=== PATIENT | female | born 1945 | race Caucasian/White ===

== ENCOUNTER 2018-05-06 03:57 | Observation (INO) | payer OTHER ==
[~2018-05-06] VITALS: Ht 165.1 cm; Wt 81.6 kg
[~2018-05-06 03:57] MED LIST: ASPIRIN81 M4 PO; CALCIUM CITRAT200 MG; CALCIUM500 M1; FLAX OIL1000 M1 PO; HYDROCHLOROTHIA25 M1 PO; LEVOTHYROXINE150 MCG PO; LOSARTAN POTASS50 M1 PO; MULTIVITAMINS1 EAC9 PO; PEPCID20 M1 PO; VITAMIN D1000 UNIT PO
[2018-05-06] MEDS ORDERED: CITRACAL + D M1 EACH PO (09:48)
--- NOTE | 2018-05-06 09:49 | Admission Core Measures ---
Acute Coronary Syndrome (CM) ACS Core Measures Acute Coronary Syndrome Diagnosis No Congestive Heart Failure (NEW) CHF Core Measures Congestive Heart Failure Diagnosis No Cerebrovascular Accident CVA Core Measures CVA/TIA Diagnosis No Venous Thromboembolism VTE Core Morro (View Protocol) VTE Risk Factors Surgery No Mechanical VTE Prophylaxis d/t N/A MechProphylax Ordered No VTE Pharm Prophylaxis d/t NA PharmProphylax ordered Problem List As ranked by this Provider includes Assessment & Plan 1. Primary osteoarthritis of left knee HOME MEDS Home Med List Aspirin (Aspirin*) 81 MG TAB.CHEW 1 TAB PO DAILY CARDIAC (Reported) Cholecalciferol (Vitamin D3) (Vitamin D) 1,000 UNIT TABLET 1 TAB PO DAILY SUPPLEMENT (Reported) Famotidine (Pepcid) 20 MG TABLET 1 TAB PO BID GERD (Reported) Hydrochlorothiazide 25 MG TABLET 1 TAB PO DAILY HTN (Reported) Levothyroxine Sodium 150 MCG TABLET 1 TAB PO DAILY REPLACEMENT (Reported) Losartan Potassium 50 MG TABLET 1 TAB PO DAILY HTN (Reported) Multiple Vitamin (Multivitamins) 1 EACH TABLET 1 TAB PO DAILY SUPPLEMENT ( Reported)
--- NOTE | 2018-05-06 09:50 | Patient Discharge Instructions ---
Discharge Instructions General Discharge Information You were seen/treated for: left knee primary osteoarthritis You had these procedures: left total knee replacement Watch for these problems: Increasing pain despite the use of pain medication Increasing redness, warmth or swelling Drainage of any type from incision Inability to bear weight on operative leg Persistent nausea and vomiting Fever greater than 101.5 degrees Other wound care: Please keep wound clean and dry. No ointments or lotions of any type on or near incision. Your dressing will be changed by your nurse on the second day after your surgery. Daily dry dressing changes are recommended each day thereafter. Do not soak your wound- no tub baths/swimming. You may shower 48hr after surgery. Diet Continue normal diet: Yes Activity Activity Limited to: Weight bear as tolerated Additional ACTIVITY Info: use assistive devices as needed Acute Coronary Syndrome Inclusion Criteria At DC or during hospital stay patient has or had the following: ACS DIAGNOSIS No Discharge Core Measures Meds if any: Prescribed or Continued at Discharge Meds if any: NOT Prescribed or Continued at Discharge Congestive Heart Failure Inclusion Criteria At DC or during hospital stay patient has or had the following: CHF DIAGNOSIS No Discharge Core Measures Meds if any: Prescribed or Continued at Discharge Meds if any: NOT Prescribed or Continued at Discharge Cerebrovascular accident Inclusion Criteria At DC or during hospital stay patient has or had the following: CVA/TIA Diagnosis No Discharge Core Measures Meds if any: Prescribed or Continued at Discharge Meds if any: NOT Prescribed or Continued at Discharge Venous thromboembolism Inclusion Criteria VTE Diagnosis No VTE Type NONE VTE Confirmed by (Test) NONE Discharge Core Measures - Per Current guidelines, there needs to be overlap - treatment for the first 5 days of Warfarin therapy. - If discharged on Warfarin prior to 5 days of - overlap therapy, the patient will need to be - assessed for post discharge needs including - *Post discharge parental anticoagulation - *Warfarin and/or parental anticoagulation education - *Follow up date to check INR post discharge At least 5 days overlap therapy as Inpatient No Meds if any: Prescribed or Continued at Discharge Note: Overlap Therapy is Warfarin and Anticoagulant Meds if any: NOT Prescribed or Continued at Discharge
[2018-05-06] MEDS ORDERED: VEGETARIAN GLU750 MG PO (09:51)
--- NOTE | 2018-05-06 11:02 | Surg Short-stay <48hrs Dis Sum ---
Visit Information Visit Dates Admission Date: 05/06/18 Discharge Date: 05/07/18 Surgical Short Stay DC Summary Admission Diagnosis: Primary osteoarthritis left knee Final Diagnosis: same, sp left total knee replacement Procedure(s): left total knee replacement Summary/Significant Findings: Patient underwent elective total joint replacement. Procedure was tolerated well and patient was transferred to a general surgical floor for recovery. Diet was advanced and tolerated. Physical therapy performed evaluation and treatment. At time of hospital discharge, vital signs were stable, neurovascular status was intact, and pain was controlled with the use of oral pain medications. Condition at Discharge: stable Discharge Disposition: home health services Discharge instructions provided to patient/family: Yes Post discharge follow-up plan: Follow up with Dr. Virk in 6 weeks from date of surgery. Please call office to schedule/confirm this appointment.
[2018-05-06] MEDS ORDERED: MIRALAX17 G1 PO (11:21)
[2018-05-06] MEDS ORDERED: ELIQUIS2.5 M1 PO (11:21)
[2018-05-06] MEDS ORDERED: COLACE100 M1 PO (11:21)
[2018-05-06] MEDS ORDERED: DILAUDID2 M1 PO (11:21)
--- NOTE | 2018-05-06 14:43 | Operative Report ---
Operative/Inv Procedure Report Surgery Date: 05/06/18 Name of Procedure: 1. Left total knee replacement 2. Right knee cortisone injection Pre-Operative Diagnosis: Bilateral primary knee DJD Post-Operative Diagnosis: Same Estimated Blood Loss: 50ml to 100ml Surgeon/Unit Technician: Sully REY,Dean King Anesthesia: block Operative/Procedure Note Note: Description of Procedure: The patient was taken to the operating room and positively identified. After induction of spinal anesthesia and administration of appropriate pre-operative antibiotics, the patient was positioned supine on the operating room table and all bony prominences were well padded. The right knee was prepped sterilely and injected with a mixture of 2 mL of Depo -Medrol and 6 mL of half percent Marcaine. A Band-Aid was placed over the injection site. Attention was then turned to the left lower extremity. A well-padded pneumatic tourniquet was placed on the left upper thigh. After performing a surgical timeout, the left lower extremity was prepped and draped in the usual sterile fashion. After exsanguination with Esmarch the tourniquet was inflated to 250mm of mercury. A standard medial parapatellar approach was made to the knee. This was carried down through skin and subcutaneous tissue to the level of the fascia. Meticulous hemostasis was maintained with Bovie electrocautery. The extensor mechanism and patellar retinaculum were opened sharply and the patella was everted. The infrapatellar fat was resected in order to improve exposure. Osteophytes were trimmed from the patella and femoral condyles and the patella was re-everted and tucked laterally. A medial release was performed and the cruciate ligaments were resected. The tibia was then subluxed anteriorly. Utilizing the appropriate extra-medullary guide, the proximal tibia was trimmed perpendicular to the long axis of the tibial shaft. Attention was then turned to the femur. After opening the medullary canal, the distal femoral cut was made in 6 degrees of valgus utilizing the appropriate intra-medullary guide. The extension gap was checked and found to be appropriate. The femur was then sized and the remainder of the femoral cuts were made with a size 3 4-in-1 femoral cutting guide. The flexion gap was checked and found to be symmetric and appropriate. The knee was then trialed with a size 3 femoral component, a size 3 tibial component and a size 11 mm polyethylene insert. The patella was trimmed to accept an A 32 patella. This yielded excellent range of motion, stability and patellar tracking. All trial components were removed and the knee was copiously irrigated with sterile saline. All components were cemented into place with [place] Simplex cement. All the components were of the TSO3 Triathlon knee system of the above stated sizes. The knee was again irrigated after cementation. The extensor mechanism and patellar retinaculum were repaired using interrupted #1 vicryl suture. The skin was re-approximated with 2-0 vicryl and closed with ave. A sterile dressing was applied, the tourniquet was deflated, the patient was awakened and taken to the recovery room in satisfactory condition.
[2018-05-06 15:59] VITALS: BP 142/82
--- NOTE | 2018-05-06 16:56 | PN- Orthopedic ---
Subjective Subjective: PATIENT WITHOUT COMPLAINTS, SITTING UPRIGHT IN BED NO COMPLAINTS COMFORTABLE Review of Systems: NO NAUSEA OR VOMITING NO FEVERS OR CHILLS Objective Vital Signs and I&Os Vital Signs Date Time Temp Pulse Resp B/P B/P Pulse O2 O2 Flow FiO2 Mean Ox Delivery Rate 05/06 1559 97.5 71 16 142/82 100 Room Air Intake & Output 05/06 1600 05/06 0800 05/06 0000 05/05 1600 05/05 0800 05/05 0000 Intake Total Output Total Balance Patient 180 lb Weight Weight Reported by Patient Measurement Method Current Medications: Current Medications Sig/Ashley Start time Last Medication Dose Route Stop Time Status Admin Acetaminophen 650 MG Q4P PRN 05/06 1615 AC PO Acetaminophen 0 .STK-MED ONE 05/06 1018 DC PO Acetaminophen 975 MG ONCE 05/06 0000 DC PO 05/06 2359 Apixaban 2.5 MG BID 05/06 2100 AC PO Cefazolin Sodium 2 GM IQ8 05/06 1600 AC N/A 1 UNIT IV 05/07 0029 Cefazolin Sodium 2,000 MG ONCE 05/06 0000 DC IV 05/06 2359 Dextrose/Sodium 1,000 ML Q13H 05/06 1615 AC Chloride IV Docusate Sodium 100 MG BID 05/06 2100 AC PO Famotidine 20 MG BID 05/06 2100 DC PO Famotidine 20 MG BID 05/06 2100 AC PO Fentanyl Citrate 0 .STK-MED ONE 05/06 1105 DC .ROUTE Hydrochlorothiazide 25 MG DAILY 05/07 0900 DC PO Hydrochlorothiazide 25 MG DAILY 05/07 0900 AC PO Hydromorphone HCl 2 MG Q4P PRN 05/06 1615 AC PO Hydromorphone HCl 4 MG Q4P PRN 05/06 1615 AC PO Levothyroxine Sodium 0.15 MG DAILY 05/07 0900 DC PO Levothyroxine Sodium 0.15 MG DAILY AC 05/07 0700 AC PO Losartan Potassium 50 MG DAILY 05/07 09 DC PO Losartan Potassium 50 MG DAILY 05/07 0900 AC PO Midazolam HCl 0 .STK-MED ONE 05/06 1012 DC .ROUTE Midazolam HCl 0 .STK-MED ONE 05/06 1011 DC .ROUTE Morphine Sulfate 2 MG Q2P PRN 05/06 1615 AC IV Morphine Sulfate 0 .STK-MED ONE 05/06 1105 DC .ROUTE Ondansetron HCl 4 MG Q6P PRN 05/06 1615 AC IV Oxycodone HCl 0 .STK-MED ONE 05/06 1018 DC PO Oxycodone HCl 10 MG ONCE 05/06 0000 DC PO 05/06 2359 Polyethylene Glycol 17 GM DAILY 05/07 0900 AC PO Promethazine HCl 12.5 MG Q6P PRN 05/06 1615 AC IV 05/13 1114 Tranexamic Acid 0 .STK-MED ONE 05/06 1105 DC IV ALERT AND ORIENTED VSS AFEBRILE LEFT KNEE- DRESSINGS CDI CALVES SOFT SENORY-MOTOR INTACT CHEST-CTA SYMMETRIC HEART-RRR ABD-SOFT, NT Assessment/Plan Assessment/Plan POSTOP CHECK AFTER LEFT TKA ADVANCE DIET TOLARATED HEPLOCK FLUIDS WHEN TAKING POS PT -WBAT, D/C PLANNING FOR HOME ELIQUIS FOR DVT PROPHALAXIS Core Measures Venous Thromboembolism VTE Risk Factors Surgery No Mechanical VTE Prophylaxis d/t N/A MechProphylax Ordered No VTE Pharm Prophylaxis d/t NA PharmProphylax ordered
[2018-05-06 20:00] VITALS: BP 152/82
[2018-05-07 00:52] VITALS: BP 140/70
[2018-05-07 04:36] VITALS: BP 140/90
[2018-05-07 06:26] VITALS: BP 140/90
--- NOTE | 2018-05-07 07:26 | PN- Orthopedic ---
Subjective Subjective: POD#1 /SP LEFT TKA NO MAJOR ISSUE OVERNIGHT DENIES CP, SPB. NO N+V WITH DIET Objective Vital Signs and I&Os Vital Signs Date Time Temp Pulse Resp B/P B/P Pulse O2 O2 Flow FiO2 Mean Ox Delivery Rate 05/07 0626 98.4 72 18 140/90 93 05/07 0436 98.4 72 18 140/90 93 05/07 0052 98.8 81 18 140/70 94 05/06 2000 99.0 80 18 152/82 96 Room Air 05/06 1559 97.5 71 16 142/82 100 Room Air Intake & Output 05/07 0800 05/07 0000 05/06 1600 05/06 0800 05/06 0000 05/05 1600 Intake Total 890 225 Output Total 400 1450 Balance 490 -1225 Intake, IV 650 225 Intake, Oral 240 Output, Urine 400 1450 Patient 180 lb Weight Weight Reported by Patient Measurement Method Physical Exam: CV: RRR LUNGS CLEAR ABD: SOFT, +BS EXT: DRSG DRY DISTAL CMS INTACT BILAT Assessment/Plan Assessment/Plan ORHTO STBLE PLACED IN OBSERVATION OVERNIGHT TO MONITOR FOR SAFETY PLAN OOB BED WITH PT CONT CURRENT REGIME HOME D/C PLANNING Core Measures Venous Thromboembolism VTE Risk Factors Surgery No Mechanical VTE Prophylaxis d/t N/A MechProphylax Ordered No VTE Pharm Prophylaxis d/t NA PharmProphylax ordered
[2018-05-07 07:37] LABS: ABSOLUTE BASOPHIL COUNT 0 /CUMM (0.0-0.2); ABSOLUTE EOSINOPHIL COUNT 0 /CUMM (0.0-0.7); ABSOLUTE GRANULOCYTE CT 6.1 /CUMM (1.4-6.5); ABSOLUTE LYMPH COUNT 0.4 /CUMM (1.2-3.4); ABSOLUTE MONOCYTE COUNT 0.6 /CUMM (0.10-0.60); BASOPHIL % 0.1 % (0.0-2.0); EOSINOPHIL % 0 % (0-5); GRANULOCYTE % 85.7 % (42.2-75.2); HEMATOCRIT 35.6 % (37-47); MEAN CORPUSCULAR HGB 38.3 PG (27.0-31.0); MEAN CORPUSCULAR HGB CONC 35.3 G/DL (33.0-37.0); MEAN CORPUSCULAR VOLUME 108.4 FL (81.0-99.0); MEAN PLATELET VOLUME 7.6 FL (7.4-10.4); PLATELET COUNT 217 /CUMM (130-400); RBC DISTRIBUTION WIDTH 13.3 % (11.5-14.5); RED BLOOD CELL CT 3.29 /CUMM (4.20-5.40); WHITE BLOOD CELL COUNT 7.1 /CUMM (4.8-10.8)
[2018-05-07 14:07] VITALS: BP 118/82
== END 2018-05-07 15:50 | disposition home health service (06) ==
LOC: STS 03:57 → EDSTATUS 07:00 → PACUH 10:00 → ENRESERV 14:58 → ENTRNSPT 15:40 → EDTRNSPTSTS 15:43 → EDTRNSPT 15:43 → 2NB 15:53 → CMPTRNSPT 16:08 → ENPENDDIS 05-07 08:31 → ENTRNSPT 05-07 15:32 → CMPTRNSPT 05-07 15:34 → 2NB 05-07 15:50
PROVIDERS: Physician Assistant Surgical
DX: M17.12 Unilateral primary osteoarthritis, left knee (principal); I10 Essential (primary) hypertension; C50.919 Malignant neoplasm of unspecified site of unspecified female breast; C79.9 Secondary malignant neoplasm of unspecified site; K21.9 Gastro-esophageal reflux disease without esophagitis; E03.9 Hypothyroidism, unspecified
CPT/HCPCS: 1255; 6040; 36415; 82436; 96374; 96376; 97116-GP; 97161-GP; 97530-GP; C1713; C9290; G0378; J0690; J1030; J2550; J7042